=== PATIENT | female | born 1985 | race Caucasian/White ===

== ENCOUNTER 2023-10-05 06:38 | Day surgery (SDC) | payer OTHER, SELFPAY ==
[2023-09-30 10:50] VITALS: BMI 20.2
--- NOTE | 2023-10-05 | PATH_ITS ---
[facility] Accession Number: [id number] No. of containers..01 Tissue . 01 Material submitted: . endometrium - ENDOMETRIAL CURETTINGS AND POLYP . 01 Diagnosis: Endometrial Curettings and Polyp: Portions of disordered proliferative endometrium; negative for glandular hyperplasia, cytologic atypia, or malignancy. Some endometrial fragments demonstrate prominent vessels, suggestive of polyp, if clinical and imaging studies are concordant. MRV 10/14/2023 1415 Local . 01 Comment: As part of routine quality control chemist, this case was also reviewed by Dr. Power, who agrees with the interpretation. . 01 Electronically signed: . Ana Vazquez MD, Pathologist NPI- [id number] . 01 Gross description: . ENDOMETRIAL CURETTINGS AND POLYP: Received in formalin are minute fragments of mucoid and hemorrhagic material measuring 4.0 x 4.0 x 0.4 cm in aggregate. Submitted in toto in 2 cassettes. /ELISA 10/06/2023 1901 Local . 01 Pathologist provided ICD-10: N92.1, N94.0 . 01 CPT . 138263 Specimen Comment: A courtesy copy of this report has been sent to [phone] Performed at: 01 [facility] [address] [place] [address] [address], [place], [place] [id number] MD Manuelito Fuentes MD Phone: [phone]
[2023-10-05] MEDS: LACTATED RINGERS 1,000 ML 42 ML IV (07:08)
[2023-10-05 07:09] VITALS: BP 121/78; PULSE 82; RESP 16; TEMP 36.5; O2SAT 100; BMI 20.2
[2023-10-05] MEDS: SCOPOLAMINE 1 PATCH TOP (07:31)
--- NOTE | 2023-10-05 07:42 | PM.GYNHP.1 ---
History of Present Illness History of Present Illness Reason for admission: vaginal bleeding (Endometrial polyp) Narrative: Carmel Nagy is a 37 year old female 0 who presents for a D&C hysteroscopy with polypectomy due to menorrhagia and an endometrial polyp found on endometrial biopsy. [facility] Medical History (Updated 09/17/23 @ 11:23 by Lauren Mathis MD) Safia's thyroiditis Social History (System 08/19/23 @ 11:27 by Antonella Leon) household members: spouse Smoking Status: Never smoker alcohol intake: current Meds Home Medications and Allergies Home Medications Medication Instructions Recorded Confirmed Type dextroamphetamine-amphetamine ER 20 mg PO DAILY 05/15/22 10/05/23 History 20 mg 24hr capsule,extend release (Adderall XR) estradiol 0.1 mg/24 hr semiweekly 1 patch transdermal 2XW 05/15/22 10/05/23 History transdermal patch levothyroxine 25 mcg capsule 25 mcg PO DAILY 05/15/22 10/05/23 History medroxyprogesterone 10 mg tablet 10 mg PO DAILY Abnormal uterine 05/15/22 10/05/23 Rx bleeding #30 tabs metronidazole 1 % topical gel 1 applic topical DAILY PRN Bleeding 05/15/22 10/05/23 History progesterone micronized 100 mg 100 mg PO QAM 05/15/22 10/05/23 History capsule Allergies Allergy/AdvReac Type Severity Reaction Status Date / Time No Known Drug Allergies Allergy Verified 10/05/23 07:18 Exam Vital Signs (past 8 hours): - 10/05/23 07:09 Temperature 97.7 F Pulse Rate 82 Respiratory Rate 16 Blood Pressure 121/78 Pulse Oximetry 100 Oxygen Delivery Method Room Air Oxygen Delivery Method Room Air Narrative Exam Narrative: HEENT: No thyromegaly, no anterior cervical or supraclavicular lymphadenopathy. Lungs:Clear to auscultation bilaterally, no wheezes. Cardiovascular: Regular rate and rhythm, no murmurs, rubs, or gallops. Abdomen: No scars. No hepatosplenomegaly. No masses palpable. External genitalia: Normal Vagina: Normal Cervix: Normal Bimanual exam: 6 Week size anteverted uterus. Mobile. Extremities: No edema Assessment & Plan Assessment & Plan narrative: Assessment: 37-year-old 0 with menorrhagia and an endometrial polyp Plan: D&C hysteroscopy with polypectomy The risks, benefits, and alternatives to the procedure were explained to the patient. The risks including bleeding, infection, and uterine perforation. She understands these risks and agrees to proceed. A full par Q was held and consent form was signed. Time Spent With Patient Time with patient: less than 30 minutes
--- NOTE | 2023-10-05 07:44 | PM.PREOP ---
Pre-operative Note Interval Note History & Physical reviewed/Exam performed by Physician: Yes Changes to H&P: No H&P completed within 30 days and has changed as indicated here:: 10/05/23
--- NOTE | 2023-10-05 08:29 | SUR.OPER ---
Lithotomy on padded OR bed, head on pillow, arms secured on padded arm boards at <90 degrees abduction. Legs secured in padded yellow fins stirrups.
--- NOTE | 2023-10-05 08:45 | P.OP_ITS ---
Operative Date/Time/Diagnoses Date of procedure: 10/05/23 Time of procedure: 08:45 Pre-op diagnosis: Menorrhagia Endometrial polyp Post-op diagnosis: same Procedure & Clinicians Procedure: Procedures Operation Date: 10/05/23 07:45 Actual Procedure Side Surgeon p Román Hysteroscopy with polypectomy Lauren Mathis MD Indications: 37-year-old 0 with menorrhagia. Fragments of endometrial polyp seen on endometrial biopsy from the office. Surgeon: Lauren Mathis Anesthesia Type: General (LMA) Operative Notes Findings: 6 week size anteverted uterus Polyp at the right cornua of the uterus Both fallopian tube ostia observed Thickened lining throughout the endometrium Closure Type: not applicable Specimen(s): endometrial curettings and endometrial polyp Applied: device(s) (Myosure) Estimated blood loss (mL): 3 Blood products transfused: none Procedure in detail: After informed consent was obtained, the patient was taken to the operating room where she was placed in the dorsal supine position. After adequate LMA general anesthesia was achieved, she was placed in the dorsal lithotomy position, and prepped and draped in the usual sterile fashion. A time-out was performed. A bivalve speculum was placed into the vagina and the anterior lip of the cervix was grasped with a single-tooth tenaculum. This was changed to the posterior lip of the cervix due to orientation of the uterus. The cervical os was dilated to the # 5 Hegar dilator. The hysteroscope passed easily into the endometrial cavity. Both fallopian tube ostia were observed. There was a polyp at the right cornua of the uterus. Using the MyoSure with the reach blade, the polyp was resected as well as the thickened endometrium on the anterior and posterior pereira of the uterus. The instruments were removed from the uterus. The single- tooth tenaculum was removed from the posterior lip of the cervix. Sponge, lap, and instrument counts were correct x2. The patient tolerated the procedure well, and was taken to PACU in stable condition. Fifteen 40 cc deficit of saline. 2 minutes and 10 seconds cutting time. Max pressure 80 mmHg. Complications: none Post-operative Condition: stable Disposition: PACU Plan for aftercare: Home after recovery
[2023-10-05 08:47] VITALS: BP 112/74; PULSE 58; RESP 10; TEMP 36.1; O2SAT 99
[2023-10-05 08:52] VITALS: BP 89/50; PULSE 68; RESP 10; O2SAT 99
[2023-10-05 08:57] VITALS: BP 94/53; PULSE 88; RESP 13; O2SAT 100
[2023-10-05 09:02] VITALS: BP 100/55; PULSE 93; RESP 13; O2SAT 100
[2023-10-05 09:13] VITALS: BP 107/67; PULSE 78; RESP 11; O2SAT 100
== END 2023-10-05 09:30 | disposition home or self-care (01) ==
PROVIDERS: Referring Provider Obstetrics & Gynecology; Visit Provider Obstetrics & Gynecology
PROC: 0UDB8ZZ Extraction of Endometrium, Via Natural or Artificial Opening Endoscopic (ICD-10-PCS; CPT 58558; principal; 2023-10-05 07:45)
DX: N92.0 Excessive and frequent menstruation with regular cycle (principal); N84.0 Polyp of corpus uteri
CPT/HCPCS: 58558; J1100; J1885; J2250; J2405; J2704; J3010